=== PATIENT | male | born 1960 | race Hispanic/Latino ===

== ENCOUNTER 2024-07-20 11:19 | Emergency (ER) | payer MEDICARE ==
[~2024-07-20] VITALS: Ht 165.1 cm; Wt 87.1 kg
[2024-07-20] MEDS ORDERED: TYLENOL325 MG PO (12:05)
[2024-07-20] MEDS ORDERED: ZANAFLEX4 MG PO (12:05)
[2024-07-20] MEDS ORDERED: IBUPROFEN200 MG PO (12:05)
[2024-07-20] MEDS: ONDANSETRON HCL INJ 2MG/ML 2ML 2 MG/ML VIAL IV ONE (12:21)
[2024-07-20] MEDS: KETOROLAC TROMETHAMINE 30 MG/ML VIAL IV STA (12:22)
[2024-07-20] MEDS: ACETAMINOPHEN 325 MG TAB PO ONE (12:23)
[2024-07-20 12:32] VITALS: PULSE 63; RESP 18; TEMP 98.3; O2SAT 98
== END 2024-07-20 12:35 | disposition home or self-care (01) ==
LOC: FSED 11:36
DX: M54.50 Low back pain, unspecified (principal); M62.830 Muscle spasm of back; G89.29 Other chronic pain; K76.0 Fatty (change of) liver, not elsewhere classified; E11.65 Type 2 diabetes mellitus with hyperglycemia
CPT/HCPCS: 74176; 80053; 81003; 85025; 99283; J1885; J2405